=== PATIENT | male | born 1940 | race Caucasian/White ===

== ENCOUNTER 2020-10-17 16:49 | Inpatient (IN) | payer MEDICARE ==
[~2020-10-17] VITALS: Ht 172.7 cm; Wt 85.8 kg
[2020-10-17 17:02] VITALS: BP 154/88
[2020-10-17] MEDS ORDERED: NEXIUM20 MG PO (17:04)
[2020-10-17] MEDS ORDERED: LOVASTATIN 20 M20 MG PO (17:04)
[2020-10-17] MEDS ORDERED: DIGOXIN125 MCG (17:04)
[2020-10-17] MEDS ORDERED: ASA81BEC PO (17:04)
[2020-10-17 17:42] LABS: CALCIUM 8.4 mg/dL (8.5-10.1); CREATININE 1.2 mg/dL (0.6-1.3); POTASSIUM 4.8 mmol/L (3.5-5.1)
[2020-10-17 17:56] LABS: ALBUMIN 3.9 g/dL (3.4-5.0); CK-MB MASS 1.6 ng/mL (<0.5-3.6); TOTAL BILIRUBIN 0.6 mg/dL (<0.1-1.0); TOTAL PROTEIN 7.4 g/dL (6.4-8.2)
[2020-10-17 18:00] LABS: ABSOLUTE EOSINOPHILS 0.2 thou/uL (0.0-0.7); ABSOLUTE LYMPHOCYTES 1.3 thou/uL (0.8-5.3); ABSOLUTE MONOCYTES 0.5 thou/uL (0.0-1.2); ABSOLUTE NEUTROPHILS 4.1 thou/uL (1.6-8.1); BASOPHILS 0.8 %; HEMOGLOBIN 13.7 gm/dL (14.0-18.0); LYMPHOCYTES 21.5 %; MCH 30.1 pg (26.0-34.0); MCHC 33.4 g/dL (28.0-37.0); MCV 90.3 fL (80.0-100.0); MONOCYTES 8.6 %; MPV 7.2 fl. (7.2-11.1); NUCLEATED RBCS 0 /100WBC; PLATELET COUNT* 229 thou/uL (150-400); POLYS 66.1 %; RBC 4.54 mil/uL (4.50-6.00); WBC 6.2 thou/uL (4.0-11.0)
[2020-10-17 21:12] VITALS: BP 138/86
[2020-10-17 23:46] VITALS: BP 110/72
[2020-10-18 04:14] VITALS: BP 129/72
[2020-10-18 08:46] VITALS: BP 121/73
[2020-10-18 12:00] VITALS: BP 137/70
--- NOTE | 2020-10-18 14:08 | EKG ---
[place] [address] ELECTROCARDIOGRAM REPORT Name: MAIKOL TOTH Room: [address] ADM IN .R.#: [id number] Admission: 10/17/20 Attend Phys: Steve Cosme Discharge: Date of : 44 Date of Service: 10/17/20 1701 Report #: [id number] THIS REPORT FOR: //name// [facility] ED Test Date: 2020-10-17 Test Time: 17:01:34 Pat Name: MAIKOL TOTH Department: Room: [facility] Gender: M It Audit Manager: AMANDA : 1940 Requested By: Sean Orozco Order Number: [id number] MD: Dariel Suazo Measurements Intervals [place] Rate: 141 P: CO: QRS: -26 QRSD: 84 T: 65 QT: 306 QTc: 469 Interpretive Statements Atrial fibrillation Borderline left axis deviation Probable anteroseptal infarct, old No previous ECG available for comparison Electronically Signed On 10-18-2020 14:07:59 CDT by Dariel Suazo [email or web address] <ELECTRONICALLY SIGNED> By: Dariel Suazo MD, FAC 10/18/20 1407 1701 1701 Dariel Suazo MD, [facility] /EPI
--- NOTE | 2020-10-18 14:58 | 2DMMODE ---
[place] [address] 2 D/M-MODE ECHOCARDIOGRAM Name: MAIKOL TOTH Room: [address] [facility]#: [id number] Admission: 10/17/20 Attend Phys: Steve Cosme Discharge: Date of : 44 Date of Service: 10/18/20 1458 Report #: [id number] THIS REPORT FOR: cc: Yaquelin Dumont Linda J. DO Liston, Michael J. MD [facility] ~ APPROVED REPORT Study performed: 10/18/2020 09:51:17 EXAM: Comprehensive 2D, Doppler, and color-flow Echocardiogram Patient Location: In-Patient Room #: [facility] Status: routine BSA: 1.99 HR: 91 bpm BP: 121/73 mmHg Rhythm: Atrial Fibrillation Other Information Study Quality: Good Indications Atrial Fibrillation Dyspnea 2D Dimensions IVSd: 10.71 (7-11mm) LVOT Diam: 20.07 (18-24mm) LVDd: 48.52 mm PWd: 10.27 (7-11mm) Ascending Ao: 31.68 (22-36mm) LVDs: 38.43 (25-40mm) Aortic Root: 31.07 mm Volumes Left Atrial Volume (Systole) LA ESV Index: 38.90 mL/m2 Aortic Valve AoV Peak Oleg.: 1.19 m/s AO Peak Gr.: 5.62 mmHg LVOT Max P.84 mmHg AO Mean Gr.: 2.91 mmHg LVOT Mean P.37 mmHg LVOT Max V: 0.84 m/s AO V2 VTI: 22.62 cm LVOT Mean V: 0.54 m/s COY (VTI): 2.21 cm2 LVOT V1 VTI: 15.83 [place] [address] 2 D/M-MODE ECHOCARDIOGRAM Name: MAIKOL TOTH Room: [address] [place] [facility]#: [id number] Admission: 10/17/20 Attend Phys: Steve Cosme Discharge: Date of : 44 Date of Service: 10/18/20 1458 Report #: [id number] TDI Lateral E' Oleg.: 0.14 m/s Pulmonary Valve PV Peak Oleg.: 0.87 m/s PV Peak Gr.: 3.05 mmHg Tricuspid Valve RAP Estimate: 5.00 mmHg TR Peak Gr.: 21.12 mmHg RVSP: 26.00 mmHg PA Pressure: 26.00 mmHg Left Ventricle The left ventricle is normal size. There is normal LV segmental wall motion. There is normal left ventricular wall thickness. Left ventricular systolic function is normal. LVEF is 50-55%. This study is not technically sufficient to allow evaluation of the LV diastolic function due to atrial fibrillation. Right Ventricle The right ventricle is normal size. The right ventricular systolic function is normal. Atria Left atrium is moderately dilated. The right atrium size is normal. Aortic Valve The aortic valve is normal in structure. No aortic regurgitation is present. There is no aortic valvular stenosis. Mitral Valve The mitral valve is normal in structure. Mild mitral regurgitation. No evidence of mitral valve stenosis. Tricuspid Valve The tricuspid valve is normal in structure. Trace tricuspid regurgitation. No pulmonary hypertension. Pulmonic Valve The pulmonary valve is normal in structure. Trace pulmonic regurgitation. Great Vessels The aortic root is normal in size. IVC is normal in size and collapses >50% [place] [address] 2 D/M-MODE ECHOCARDIOGRAM Name: MAIKOL TOTH Room: [address]#: [id number] Admission: 10/17/20 Attend Phys: Steve Cosme Discharge: Date of : 44 Date of Service: 10/18/20 1458 Report #: [id number] Pericardium There is no pericardial effusion. <Conclusion> The left ventricle is normal size. There is normal left ventricular wall thickness. Left ventricular systolic function is normal. LVEF is 50-55%. There is normal LV segmental wall motion. Left atrium is moderately dilated. Mild mitral regurgitation. Trace tricuspid regurgitation. No pulmonary hypertension. Trace pulmonic regurgitation. IVC is normal in size and collapses >50% with inspiration. <ELECTRONICALLY SIGNED> By: Elijah Bustamante MD, FACC 10/18/20 1458 1458 1458 Elijah Bustamante MD, FACC /INF
[2020-10-18] MEDS ORDERED: DILTIAZEM 24HR180 M1 PO (16:10)
--- NOTE | 2020-10-19 12:54 | CON ---
[address] [address] CONSULTATION Name: JANEYMAIKOL Room: [address] IN M.R.#: [id number] Admission: 10/17/20 Attend Phys: Lucille Palafox Discharge: 10/18/20 Date of : 44 Report #: [id number] THIS REPORT FOR: cc: Yaquelin Dumont Linda J. DO Liston, Michael J. MD [facility] ~ DOC #: [id number] cc: DO Elijah Poon MD DATE OF CONSULTATION: 10/18/2020 CARDIOLOGY CONSULTATION INDICATION: New-onset atrial fibrillation. HISTORY OF PRESENT ILLNESS: The patient is a very pleasant 80-year-old gentleman with no prior history of atrial fibrillation. He does have a history of coronary artery disease with percutaneous coronary intervention in 1998 in the setting of myocardial infarction at [facility]. He has had no cardiac intervention since. He does not follow with Cardiology on a regular basis. He presented to his primary physician's office with complaints of dyspnea on exertion and shortness of breath that was acute. He was noted to be in atrial fibrillation and sent to the emergency room where he was admitted to the hospital. His rate was controlled with diltiazem drip. At the time of my interview, he is symptom free. PAST MEDICAL HISTORY: 1. Coronary artery disease as outlined above. 2. Hyperlipidemia. FAMILY HISTORY: Noncontributory. SOCIAL HISTORY: The patient is a lifelong nonsmoker. He does not drink alcohol. REVIEW OF SYSTEMS: A 14-point review of systems otherwise negative. PHYSICAL EXAMINATION: VITAL SIGNS: Stable. Blood pressure 137/70, pulse presently in the 80s and irregular. GENERAL: This is a pleasant gentleman in no distress. [place] [address] CONSULTATION Name: MAIKOL TOTH Room: [address]#: [id number] Admission: 10/17/20 Attend Phys: Lucille Palafox Discharge: 10/18/20 Date of : 44 Report #: [id number] HEENT: Extraocular muscles intact. Mucous membranes moist. NECK: Examination of the neck shows no jugular venous distention. No carotid bruits. CHEST: Reveals clear lung anaya without wheezes or rales. HEART: Reveals an irregularly irregular rhythm without gallop or murmur. ABDOMEN: Examination of the abdomen reveals normal bowel sounds and soft, nontender. EXTREMITIES: Shows no edema. Peripheral pulses palpable. SKIN: Warm and dry. A 12-lead EKG shows atrial fibrillation with rapid ventricular response rate. No acute ST segment abnormalities noted. LABORATORY DATA: Reviewed. Electrolytes within normal limits. BUN 24, creatinine 1.2, serum glucose 106. LFTs are within normal limits. Troponins are less than 0.06 on 3 separate occasions. NT-proBNP is minimally elevated at 1233. Coags are within normal limits. Hemoglobin 13.7, white blood cell count 6.2, and platelet count 229,000. Chest x-ray shows some atelectasis but is otherwise unremarkable. CTA to rule out pulmonary embolus was unremarkable. There is no evidence of pulmonary emboli. IMPRESSION AND RECOMMENDATIONS: Atrial fibrillation with onset of approximately a week and a half or two weeks. The patient is moderately symptomatic with rapid ventricular response rate. With correction of his heart rate, his symptoms have improved. We will start anticoagulation in the form of Xarelto 20 mg daily. We will continue rate control with diltiazem 180 mg daily. PLAN: 1. DC cardioversion in 4 weeks as outpatient. 2. Coronary artery disease, presently stable. He is ruled out for myocardial infarction. Continue risk factor modification. The patient appears stable from a cardiac standpoint for discharge. We will plan on followup as outpatient with DC cardioversion in 4 weeks. Elijah Bustamante MD [facility] [address] CONSULTATION Name: MAIKOL TOTH Suk[facility] Room: [address]#: [id number] Admission: 10/17/20 Attend Phys: Lucille Palafox Discharge: 10/18/20 Date of : 44 Report #: [id number] <ELECTRONICALLY SIGNED> By: Elijah Bustamante MD, FACC 10/19/20 1254 1424 2327Michael Tj Bustamante MD, FACC /nt
== END 2020-10-18 22:31 | disposition home or self-care (01) | DRG 310 ==
LOC: M.ERS 16:49 → M.TBA-ER 18:23 → M.2W 18:23
PROVIDERS: Family Medicine; ADMIT Internal Medicine; ATTEND Internal Medicine
DX: I48.20 Chronic atrial fibrillation, unspecified (principal); I25.10 Atherosclerotic heart disease of native coronary artery without angina pectoris; E78.5 Hyperlipidemia, unspecified; Z20.822 Contact with and (suspected) exposure to COVID-19; Z79.82 Long term (current) use of aspirin; Z79.899 Other long term (current) drug therapy